=== PATIENT | female | born 1940 | race Caucasian/White ===

== ENCOUNTER → 2016-07-29 08:17 | Outpatient (CLI) | payer MEDICARE, BC ==
[2016-06-15 13:28] VITALS: BMI 21.8
[~2016-07-29 08:17] MED LIST: ACTOS15 MG PO; ALDACTONE50 MG PO; ARAVA10 MG PO; BAYER CHEWABLE81 MG PO; BREO ELLIPTA 11 EACH INH; BUMEX 1 MG TAB1 MG PO; DULERA 100 MCG8.8 GM INH; ESTRACE 0.5 MG0.5 MG PO; FOLIC ACID1 MG PO; FUROSEMIDE20 MG PO; HEMOCYTE PLUS C1 CAP PO; JANUMET XR 50-1 EACH PO; JANUVIA100 MG PO; K-TAB10 MEQ PO; LEUCOVORIN CALCI5 MG PO; LISINOPRIL10 MG PO; MAG-OX 400 MG400 MG PO; METHOTREXATE2.5 MG PO; MYSOLINE 50 MG50 MG PO; NEURONTIN 300300 MG PO; OMEPRAZOLE20 M1 PO; PLAVIX75 MG PO; PRAVACHOL80 MG PO; PREDNISONE1 MG PO; SYNTHROID25 MCG PO; VENTOLIN HFA18 GM INH; ZANAFLEX4 MG PO; ZEBETA5 MG PO; ZYLOPRIM100 MG PO; ZYRTEC10 MG PO
== END | disposition home or self-care (01) ==
LOC: D.RAD 08:15
DX: I50.9 Heart failure, unspecified (principal); J44.9 Chronic obstructive pulmonary disease, unspecified; J90 Pleural effusion, not elsewhere classified; J96.90 Respiratory failure, unspecified, unspecified whether with hypoxia or hypercapnia

== ENCOUNTER 2016-08-17 05:43 | Outpatient (CLI) | payer MEDICARE, BC ==
[~2016-08-17] VITALS: Ht 152.4 cm; Wt 50.0 kg
[~2016-08-17 05:43] MED LIST changes: -BAYER CHEWABLE81 MG PO; -BREO ELLIPTA 11 EACH INH; -ESTRACE 0.5 MG0.5 MG PO; -HEMOCYTE PLUS C1 CAP PO; -MAG-OX 400 MG400 MG PO; -PLAVIX75 MG PO; -ZYRTEC10 MG PO
[2016-08-17 06:48] LABS: BASOPHILS 0.4 % (0.0-2.0); EOSINOPHILS 5.2 % (0-7); HEMATOCRIT 28.7 % (36.0-48.0); HEMOGLOBIN 9.1 g/dL (12-16); IMMATURE GRANULOCYTES 1.4 % (0-5); LYMPHOCYTES 18.2 % (15-50); MCH 30.7 pg (26.0-34.0); MCHC 31.7 g/dL (31.0-37.0); MEAN PLATELET VOLUME 9.7 fL (7.4-10.4); MONOCYTES 11.3 % (2-11); NEUTROPHILS 63.5 % (40-80); PLATELET COUNT 279 10x3/uL (130-400); RBC 2.96 10x6/uL (4.00-5.40); RDW 16.5 % (11.5-14.5); WBC 9.2 10x3/uL (4.8-10.8)
[2016-08-17 07:00] LABS: APTT 34.4 SECONDS (22.8-39.4); INR 1.01 (0.85-1.17); PROTIME 13.1 SECONDS (11.6-15.0)
[2016-08-17 07:03] LABS: ANION GAP 13.4 mmol/L (8-16); CALCIUM 8.6 mg/dL (8.5-10.1); CARBON DIOXIDE 26.7 mmol/L (21.0-32.0); POTASSIUM - SERUM 4.1 mmol/L (3.5-5.1)
[2016-08-17 07:25] VITALS: BP 111/52; Ht 152.4 cm; Wt 50.0 kg
[2016-08-17] MEDS ORDERED: K-TAB10 MEQ PO (07:35)
--- NOTE | 2016-08-17 09:53 | NUR ---
AWAKE AND ALERT SITTING UP EATING NO DISTRESS NOTED , [facility] CAR WAS IN ROOM TO TALK WITH PT
--- NOTE | 2016-08-17 09:54 | NUR ---
VS TAKEN AND PLACE ON POST OP SHEET
--- NOTE | 2016-08-17 13:23 | NUR ---
PATIENT DRESSED, SITTING IN CHAIR IN ROOM, ALERT, NO COMPLAINTS. DC INSTRUCTIONS REVIEWED, PATIENT DISCHARGED HOME VIA WHEELCHAIR TO PRIVATE VEHICLE WITH SPOUSE
[2016-08-18 14:24] LABS: FUNGUS STAIN Final report (())
[2016-08-18 15:23] LABS: AFB SPECIMEN PROCESSING Not Indicated (())
[2016-09-15 09:17] LABS: FUNGUS MYCOLOGY CULTURE Final report (())
[2016-10-07 12:17] LABS: ACID FAST CULTURE Negative (()); ACID FAST SMEAR Negative (())
== END 2016-08-17 14:00 | disposition home or self-care (01) ==
LOC: D.OPS 05:43 → D.CT 08:00 → D.OPS 14:00 → D.CT 08-18 11:00
PROVIDERS: General Practice; Internal Medicine Pulmonary Disease
DX: J90 Pleural effusion, not elsewhere classified (principal); I50.9 Heart failure, unspecified; J45.909 Unspecified asthma, uncomplicated; J44.9 Chronic obstructive pulmonary disease, unspecified; J98.11 Atelectasis; R94.2 Abnormal results of pulmonary function studies; I27.2 Other secondary pulmonary hypertension; I25.10 Atherosclerotic heart disease of native coronary artery without angina pectoris; E78.5 Hyperlipidemia, unspecified; K21.9 Gastro-esophageal reflux disease without esophagitis; I07.1 Rheumatic tricuspid insufficiency; I10 Essential (primary) hypertension; E03.9 Hypothyroidism, unspecified; I34.0 Nonrheumatic mitral (valve) insufficiency; E11.9 Type 2 diabetes mellitus without complications

== ENCOUNTER → 2016-08-18 09:22 | Outpatient (CLI) | payer MEDICARE, BC ==
[2016-08-17 07:25] VITALS: BMI 21.5
[~2016-08-18 09:22] MED LIST changes: +BAYER CHEWABLE81 MG PO; +BREO ELLIPTA 11 EACH INH; +ESTRACE 0.5 MG0.5 MG PO; +HEMOCYTE PLUS C1 CAP PO; +MAG-OX 400 MG400 MG PO; +PLAVIX75 MG PO; +ZYRTEC10 MG PO
== END | disposition home or self-care (01) ==
LOC: D.RAD 09:22
DX: J93.9 Pneumothorax, unspecified (principal)

== ENCOUNTER → 2016-08-24 11:04 | Outpatient (CLI) | payer MEDICARE, BC ==
[2016-08-17 07:25] VITALS: BMI 21.5
== END | disposition home or self-care (01) ==
LOC: D.RAD 11:04
DX: J90 Pleural effusion, not elsewhere classified (principal); R06.00 Dyspnea, unspecified

== ENCOUNTER 2016-09-23 06:48 | Outpatient (CLI) | payer MEDICARE, BC ==
[~2016-09-23] VITALS: Ht 152.4 cm; Wt 50.0 kg
--- NOTE | ~2016-09-23 | HEMODYNAMI ---
PATIENT:LORRI GRACE MEDICAL RECORD: [id number] : 40 LOCATION:[facility] ADMISSION DATE: 09/23/16 Generatedon:09/23/20169:37 Patient name: LORRI GRACE Patient #: [id number] : 1940 Date of study: 09/23/2016 Page: Of Hemodynamic Procedure Report Patient Data Patient Demographics Procedure consent was obtained First Name: LORRI Gender: Female Last Name: LESLY : 1940 Middle Initial: CRISTINO Age: 76 year(s) Patient #: [id number] Race: SSN: [id number] Additional ID: [id number] Contact details Address: [facility] [address] State: [place] City: [place] Zip code: [address] Past Medical History Allergies Allergen Reaction Date Comments Reported Other allergy 09/23/2016 Metformin, PCN Admission Admission Data Admission Date: 09/23/2016 Admission Time: 6:48 Arrival Date: 09/23/2016 Arrival Time: 9:00 Admit Source: Other Insurance Payor: Medicare Height (in.): 60 BSA: 1.46 (m2) Height (cm.): 152.4 BMI: 22.07 (kg/m2) Weight (lbs.): 113 Weight (kg.): 51.26 Lab Results Lab Result Date: 09/23/2016 Lab Result Time: 0:00 Biochemistry Name Units Result Min Max BUN mg/dl 50 --(----)-* 7 18 Creatinine mg/dl 1 --(--*-)-- 0.6 1.3 CBC Name Units Result Min Max Hemoglobin g/dl 9.6 *-(----)-- 13.5 17.5 Procedure Procedure Types Cath Procedure Diagnostic Procedure LHC LHC w/Coronaries PCI Procedure PTCA Initial Miscellaneous Procedures Moderate Sedation up to 45 minutes Procedure Description Procedure Date Procedure Date: 09/23/2016 Procedure Start Time: 8:56 Procedure End Time: 9:34 Procedure Staff Name Function Cruz Rubin MD Performing Physician Lyubov Guidry RT Scrub Adrián Garner RN Nurse Pat Mireles RT Monitor Indication Angina Procedure Data Cath Procedure Fluoroscopy Diagnostic fluoroscopy Total fluoroscopy Time: time: 10.9 min 10.9 min Diagnostic fluoroscopy Total fluoroscopy dose: dose: 1291 mGy 1291 mGy Contrast Material Contrast Material Type Amount (ml) Isovue 370 113 Entry Location Entry Primary Successful Side Size Upsize Upsize Entry Closure Hughes ccessful Closure Location (Fr) 1 (Fr) 2 (Fr) Remarks Device Remarks Radial Right 6 Fr Mechanical artery Short Compression Estimated blood loss: 5 ml Diagnostic catheters Device Type Used For End Catheter Placement TerAdQuantic Optitorque 5Fr Multi-vessel Arco 4.5 catheter Angiography Procedure Complications No complications Procedure Medications Medication Administration Route Dosage Oxygen NC 2 l/min Heparin Flush Bag added to field 2 bags (1000units/500ml NS) 0.9% NaCl I.V. 100 ml/hr Radial Cocktail added to field 1 syringe (Verapomil 2mg/Nitro 400mcg/Heparin 1500units) Versed I.V. 1 mg Radial Cocktail I.A. 1 syringe (Verapomil 2mg/Nitro 400mcg/Heparin 1500units) Versed I.V. 1 mg Heparin Bolus I.V. 5000 units Plavix P.O. 600 mg Hemodynamics Rest BSA: 1.46 (m2) HGB: 9.6 (g/dl) O2 Consumption: Estimated: 130.17 (ml/min) O2 Con sumption indexed: Estimated:89.16 (ml/min/m) Heart Rate: 66 (bpm) Pressure Samples Time Site Value (mmHg) Purpose Heart Use Rate(bpm) 8:59 LV 114/15,25 Snapshot 66 9:00 AO 110/31(70) Pullback 73 9:00 LV 110/14,23 Pullback 73 Gradients Valve Time Site 1 Site 2 Mean SEP/DFP Peak To Heart Use (mmHg) (sec/min) Peak Rate (mmHg) (bpm) Aortic 9:00 LV AO 5 20 0 73 110/14,23 110/31(70) Calculations Valve P-P Mean Valve Index Valve Source Name Gradient Area Flow (cm2) Aortic 0 5 0 5 Snapshots Pre Cath Intra NCS Post Cath Vital Signs Time Heart Resp SPO2 etCO2 [id number] NIBP (mmHg) Rhythm Pain Sedation Rate (ipm) (%) (mmHg) (mmHg) Status Level (bpm) 8:35:25 75 18 0 0 114/76(98) NSR 0 (11) 10(A) , No pain 8:39:27 74 25 97 0 0 117/73(100) NSR 0 (11) 10(A) , No pain 8:43:31 74 26 97 0 0 121/71(99) NSR 0 (11) 10(A) , No pain 8:47:34 75 27 98 0 0 124/73(100) NSR 0 (11) 10(A) , No pain 8:51:40 74 26 98 0 0 117/71(94) NSR 0 (11) 10(A) , No pain 8:55:44 73 22 98 0 0 114/70(88) NSR 0 (11) 10(A) , No pain 8:59:50 58 23 98 0 0 109/59(76) NSR 0 (11) 9(A) , No pain 9:03:53 69 22 94 0 0 106/61(84) NSR 0 (11) 9(A) , No pain 9:07:55 68 22 95 0 0 105/61(88) NSR 0 (11) 9(A) , No pain 9:11:57 69 21 95 0 0 106/61(82) NSR 0 (11) 9(A) , No pain 9:15:59 73 21 96 0 0 107/62(92) NSR 0 (11) 9(A) , No pain 9:20:00 72 22 96 0 0 108/63(92) NSR 0 (11) 9(A) , No pain 9:24:04 69 20 96 0 0 111/62(92) NSR 0 (11) 9(A) , No pain 9:28:06 73 24 95 0 0 117/69(99) NSR 0 (11) 9(A) , No pain 9:32:13 72 23 95 0 0 117/61(93) NSR 0 (11) 9(A) , No pain 9:36:26 70 24 95 0 0 106/60(90) NSR 0 (11) 10(A) , No pain Medications Time Medication Route Dose Verified Delivered Reason Notes Effectiveness by by 8:36:57 Oxygen NC 2 l/min Adrián Sampson Per physician Pascual Garner RN RN 8:37:08 Heparin Flush added 2 bags Adrián Adrián used for Bag to Pascual Garner RN procedure (1000units/500ml field RN NS) 8:37:19 0.9% NaCl I.V. 100 Adirán Sampson Per physician ml/hr Pascual Garner RN RN 8:37:31 Radial Cocktail added 1 Adrián Adrián used for (Verapomil to syringe Pascual Garner RN procedure 2mg/Nitro field RN 400mcg/Heparin 1500units) 8:57:06 Versed I.V. 1 mg Adrián Simony for sedation Pascual Garner RN RN 8:58:38 Radial Cocktail I.A. 1 Adrián Cruz for (Verapomil syringe Pascual Rubin MD vasodilation 2mg/Nitro RN 400mcg/Heparin 1500units) 9:09:30 Versed I.V. 1 mg Adrián Sampson for sedation Pascual Garner RN RN 9:13:55 Heparin Bolus I.V. 5000 Adrián Adrián for units Pascual Garner RN anticoagulation RN 9:34:53 Plavix P.O. 600 mg Adrián Sampson for Pascual Garner RN antiplatelet RN therapy Procedure Log Time Note 8:15:40 Adrián Garner RN sent for patient. Start room use. 8:23:56 Informed consent obtained and on chart 8:25:47 Diagnostic Cath Status : Elective 8:27:29 Indication : Angina 8:27:52 Time tracking: Regular hours 8:27:58 Plan of Care:Hemodynamics will remain stable., Cardiac rhythm will remain stable., Comfort level will be maintained., Respiratory function will remain adequate., Patient/ family verbilizes understanding of procedure., Procedure tolerated without complication., Recovers from procedure without complications.. 8:28:04 Patient received from Pre/Post Procedure Room to [facility] 1 Alert and oriented. Tansferred to table in Supine position. 8:28:05 Warm blankets applied, and fili hugger turned on for patient comfort. 8:28:06 Correct patient and procedure confirmed by team. 8:28:07 ECG and BP/O2 sat monitors applied to patient. 8:34:08 Vital chart was started 8:34:20 Baseline sample Acquired. 8:34:24 Rhythm: sinus rhythm 8:34:26 Full Disclosure recording started 8:34:58 H&P Date Dictated: 09/15/2016 Within 30 days and on chart., H&P Addendum completed by physician on day of procedure. (MUST COMPLETE FOR ALL OUTPATIENTS). 8:35:02 Pre-procedure instructions explained to patient. 8:35:04 Family in waiting room. 8:35:07 Patient NPO since Midnight. 8:35:29 Patient allergic to Other allergyMetformin, PCN 8:35:33 Is the patient allergic to Iodine/contrast media? No. 8:35:52 Patient diabetic? Yes. 8:35:53 If diabetic: On Metformin? Yes 8:35:54 If on Metformin: Last Dose? 09/21/2016 8:36:07 Snore? Yes 8:36:11 Sleep apnea? Yes 8:36:30 Is patient on blood thinner?No 8:36:38 Airway obstruction? Yes COPD 8:36:53 Dentures? No ? 8:36:54 Dentures? Yes ? 8:36:57 Oxygen 2 l/min NC was given by Adrián Garner RN; Per physician; 8:36:59 Patient pain scale 0/10 ?. 8:37:07 IV patent on arrival in left forearm with 0.9% NaCl at [facility]. 8:37:08 Heparin Flush Bag (1000units/500ml NS) 2 bags added to field was given by Adrián Garner RN; used for procedure; 8:37:19 0.9% NaCl 100 ml/hr I.V. was given by Adrián Garner RN; Per physician; 8:37:31 Radial Cocktail (Verapomil 2mg/Nitro 400mcg/Heparin 1500units) 1 syringe added to field was given by Adrián Garner RN; used for procedure; 8:38:16 Lab Result : BUN 50 mg/dl 8:38:16 Lab Result : Creatinine 1 mg/dl 8:38:16 Lab Result : Hemoglobin 9.6 g/dl 8:38:31 Lab results completed and on chart. 8:38:37 Right Radial & Right Groin area was prepped with chlora-prep and draped in sterile fashion 8:38:45 Alarms reviewed by R. N. 8:38:46 Sharps counted by scrub and verified by R.N. 8:38:54 Use device set Radial Dx 8:38:56 Acist Syringe opened to sterile field. 8:38:56 Medline Cath Pack opened to sterile field. 8:38:57 Bag Decanter opened to sterile field. 8:38:57 Terumo 6Fr Slender Glidesheath opened to sterile field. 8:38:58 St Jose 260cm J .035 wire opened to sterile field. 8:38:58 Acist Hand Control opened to sterile field. 8:38:58 Acist Manifold opened to sterile field. 8:38:59 Tegaderm 4 x 4 opened to sterile field. 8:42:23 Physician arrived 8:42:23 --------ALL STOP TIME OUT------ 8:42:24 Final Timeout: patient, procedure, and site verified with staff and physician. All members of the team are in agreement. 8:42:26 Right Radial & Right Groin site verified by team. 8:42:29 Physical assessment completed. ASA score P 2 - A patient with mild systemic disease as per Cruz Rubin MD. 8:42:33 Sedation plan: IV Moderate Sedation Versed, Fentanyl 8:48:53 Admit Source: Other 8:48:55 Arrival Date: 09/23/2016 9:00:00 AM 8:49:05 Insurance Payor : Medicare 8:49:15 Patient Height : 60 inches 8:49:19 Patient Weight : 113 lbs 8:49:36 Zero performed for pressure channel P1 8:55:47 Procedure started. 8:56:08 Local anesthetic to right radial artery with Lidocaine 2% by Cruz Rubin MD.INITIAL ACCESS ONLY 8:57:06 Versed 1 mg I.V. was given by Adrián Garner RN; for sedation; 8:58:08 A 6 Fr Short sheath was inserted into the Right Radial artery 8:58:35 A Terumo Optitorque 5Fr Arco 4.5 catheter was advanced over the wire and used for Multi-vessel Angiography. 8:58:38 Radial Cocktail (Verapomil 2mg/Nitro 400mcg/Heparin 1500units) 1 syringe I.A. was given by Cruz Rubin MD; for vasodilation; 8:59:44 LV hemodynamics recorded. 8:59:45 LV gram done using HOPE 8:59:49 Injector settings: Ml/sec: 5, Volume: 15, 9:00:22 EF : 40 % 9:00:56 LCA angiography performed. 9:01:00 Injector settings: Ml/sec: 3, Volume: 6, 9:08:36 RCA angiography performed. 9:08:39 Injector settings: Ml/sec: 3, Volume: 6, 9:08:42 Catheter removed. 9:08:43 Proceeding to intervention. 9:09:30 Versed 1 mg I.V. was given by Adrián Garner RN; for sedation; 9:09:41 Medtronic Launcher 6Fr AR 1.0 SH guide catheter opened to sterile field. 9:09:42 High Pressure Extension Tubing (Rubin) opened to sterile field. 9:09:43 Eventcheq BMW [place] 2 J-tip 300cm 0.014 guide wir opened to sterile field. 9:09:44 LesConcierges BasixCompak Inflation Kit opened to sterile field. 9:10:09 6 Fr ar 1 sh guide catheter was inserted over the wire 9:13:48 bmw wire advanced. 9:13:50 Wire advanced across lesion. 9:13:55 Heparin Bolus 5000 units I.V. was given by Adrián Garner RN; for anticoagulation; 9:16:26 Inflation number: 1 A Rosalie Sci Hardin 2.0 X 20 balloon was prepped and advanced across the Dist RCA, then inflated to 10 ADAIR for 0:10 (min:sec). 9:16:49 Inflation number: 1 The Rosalie Sci Hardin 2.0 X 20 balloon was reinflated across the Mid RCA, to 12 ADAIR for 0:10 (min:sec). 9:17:22 Inflation number: 2 The Rosalie Sci Hardin 2.0 X 20 balloon was reinflated across the Mid RCA, to 14 ADAIR for 0:10 (min:sec). 9:18:07 Inflation number: 1 The Rosalie Sci Hardin 2.0 X 20 balloon was reinflated across the Prox RCA, to 16 ADAIR for 0:10 (min:sec). 9:18:19 Baseline sample Acquired. 9:19:58 Inflation number: 2 The Rosalie Sci Hardin 2.0 X 20 balloon was reinflated across the Prox RCA, to 16 ADAIR for 0:10 (min:sec). 9:20:35 Balloon removed over the wire. 9:26:48 Inflation number: 3 A NC Euphora 2.5 x 15 balloon was prepped and advanced across the Prox RCA, then inflated to 14 ADAIR for 0:10 (min:sec). 9:27:37 Inflation number: 4 The NC Euphora 2.5 x 15 balloon was reinflated across the Prox RCA, to 14 ADAIR for 0:10 (min:sec). 9:28:14 Inflation number: 5 The NC Euphora 2.5 x 15 balloon was reinflated across the Prox RCA, to 16 ADAIR for 0:10 (min:sec). 9:30:11 Inflation number: 6 The NC Euphora 2.5 x 15 balloon was reinflated across the Prox RCA, to 20 ADAIR for 0:10 (min:sec). 9:32:26 Wire removed. 9:32:51 Guide catheter removed. 9:32:58 Terumo TR Band Standard opened to sterile field. 9:33:08 Sheath removed intact; hemostasis achieved with Mechanical Compression to the Right Radial artery. 9:33:09 Procedure ended.(Physican Out) 9:33:22 Fluoroscopy time 10.90 minutes. 9:33:32 Fluoroscopy dose: 1291 mGy 9:33:32 Flurop Dose total: 1291 9:33:41 Contrast amount:Isovue 370 113ml. 9:33:44 Sharps counted by scrub and verified by R.N. 9:33:48 TR band inflated with 12cc of air. 9:33:50 Insertion/operative site no bleeding no hematoma. 9:33:54 Post right radial artery:stable 9:33:56 Post Procedure Pulses reassessed and unchanged 9:33:59 Post procedure rhythm: unchanged. 9:34:02 Estimated blood loss: 5 ml 9:34:04 Post procedure instruction explained to patient.Patient verbalizes understanding. 9:34:04 Patient needs reinforcement of post procedure teaching. 9:34:13 Procedure type changed to Cath procedure, Diagnostic procedure, LHC, LHC w/Coronaries, PCI procedure, PTCA Initial, Miscellaneous Procedures, Moderate Sedation up to 45 minutes 9:34:14 Procedure and supply charges have been captured, reviewed, submitted and are correct. 9:34:19 Procedure Complication : No complications 9:34:25 Vital chart was stopped 9:34:26 See physician's report for complete and final results. 9:34:29 Report given to Pre/Post Procedure Room. 9:34:31 Patient transfered to Pre/Post Procedure Room with Stretcher. 9:34:33 Procedure ended. 9:34:33 Full Disclosure recording stopped 9:34:40 End room use (Document Last) 9:34:53 Plavix 600 mg P.O. was given by Adrián Garner RN; for antiplatelet therapy; Intervention Summary Intervention Notes Time ActionType Lesion and Equipment Action# Pressure Duration Attributes Used 9:16:26 Inflate Dist RCA Rosalie 1 10 00:10 balloon Sci Hardin 2.0 X 20 balloon 9:16:49 Reinflate Mid RCA Rosalie 1 12 00:10 balloon Sci Hardin 2.0 X 20 balloon 9:17:22 Reinflate Mid RCA Rosalie 2 14 00:10 balloon Sci Hardin 2.0 X 20 balloon 9:18:07 Reinflate Prox RCA Rosalie 1 16 00:10 balloon Sci Hardin 2.0 X 20 balloon 9:19:58 Reinflate Prox RCA Rosalie 2 16 00:10 balloon Sci Hardin 2.0 X 20 balloon 9:26:48 Inflate Prox RCA NC 3 14 00:10 balloon Euphora 2.5 x 15 balloon 9:27:37 Reinflate Prox RCA NC 4 14 00:10 balloon Euphora 2.5 x 15 balloon 9:28:14 Reinflate Prox RCA NC 5 16 00:10 balloon Euphora 2.5 x 15 balloon 9:30:11 Reinflate Prox RCA NC 6 20 00:10 balloon Euphora 2.5 x 15 balloon Device Usage Item Name Manufacture Quantity Catalog Number Hospital Part Current Mini mal Lot# / Charge Number Stock Stock Serial# Code Acist Acist 1 00674 [id number] 195448 540507 20 Syringe Medical Systems Inc Medline Cardinal 1 [id number] 472165 16425 152122 5 Cath Pack Health Bag Microtek 1 2001S 606213 18173 849529 5 DecEmployma Medical Inc. Terumo 6Fr Terumo 1 [id number] 555662 427736 171100 [address] Jose 1 191596 176753 757844 712536 30 260cm J .035 wire Acist Hand Acist 1 25633 184667 257234 443173 5 Control Medical Systems Inc Acist Acist 1 49699 467491 928173 120091 5 Manifold Medical Systems Inc Tegaderm 4 3M 1 1626W 202083 585284 923468 5 x 4 Terumo Terumo 1 40-7762 871230 803779 337620 5 Optitorque 5Fr Arco 4.5 catheter Medtronic Medtronic 1 [id number] 510098 39106 642266 1 Launcher 6Fr AR 1.0 SH guide catheter High Merit 1 [id number] 868806 15653 248678 10 Pressure Medical Extension Tubing (Rubin) Burrell BMW Burrell 1 [id number] 410826 231989 255549 5 [place] 2 Vascular J-tip 300cm 0.014 guide wir Merit Merit 1 [id number] 211296 107820 957116 15 BasixCompak Medical Inflation Kit Rosalie Sci Rosalie 1 [id number] 622482 931023 687236 1 [id number] DNART LIMITADA 2.0 X 20 balloon NC Euphora Medtronic 1 [id number] 083680 537805 805493 1 [id number] 2.5 x 15 balloon Terumo TR Terumo 1 [id number] 449521 609899 639635 40 Band Standard Signature Audit Reeds Stage Time Signature Unsigned Intra-Procedure 09/23/2016 Pat Mireles 9:36:58 AM RT(R) Signatures Monitor : Pat Mireles RT Signature : Date : Time : [facility] [address] [place] [address]
[~2016-09-23 06:48] MED LIST changes: -BAYER CHEWABLE81 MG PO; -BREO ELLIPTA 11 EACH INH; -ESTRACE 0.5 MG0.5 MG PO; -HEMOCYTE PLUS C1 CAP PO; -MAG-OX 400 MG400 MG PO; -PLAVIX75 MG PO; -ZYRTEC10 MG PO
[2016-09-23 07:33] LABS: BASOPHILS 0.2 % (0.0-2.0); HEMATOCRIT 29.4 % (36.0-48.0); HEMOGLOBIN 9.6 g/dL (12-16); LYMPHOCYTES 14.1 % (15-50); MCH 32.1 pg (26.0-34.0); MCHC 32.7 g/dL (31.0-37.0); MCV 98.3 fL (80.0-100.0); MEAN PLATELET VOLUME 9.9 fL (7.4-10.4); MONOCYTES 8.5 % (2-11); NEUTROPHILS 74.2 % (40-80); PLATELET COUNT 324 10x3/uL (130-400); RBC 2.99 10x6/uL (4.00-5.40); RDW 18.1 % (11.5-14.5); WBC 8.8 10x3/uL (4.8-10.8)
[2016-09-23] MEDS ORDERED: FUROSEMIDE20 MG PO (07:34)
[2016-09-23] MEDS ORDERED: MAG-OX 400 MG400 MG PO (07:35)
[2016-09-23] MEDS ORDERED: ESTRACE 0.5 MG0.5 MG PO (07:36)
[2016-09-23] MEDS ORDERED: ZYRTEC10 MG PO (07:36)
[2016-09-23] MEDS ORDERED: BAYER CHEWABLE81 MG PO (07:37)
[2016-09-23] MEDS ORDERED: HEMOCYTE PLUS C1 CAP PO (07:37)
[2016-09-23 07:40] LABS: CALCIUM 8.7 mg/dL (8.5-10.1); CARBON DIOXIDE 26.2 mmol/L (21.0-32.0); POTASSIUM - SERUM 4.2 mmol/L (3.5-5.1)
[2016-09-23 07:46] VITALS: BP 121/58; Ht 152.4 cm; Wt 50.0 kg
[2016-09-23] MEDS ORDERED: PLAVIX75 MG PO (09:58)
--- NOTE | 2016-09-23 10:42 | NUR ---
1005-TR BAND INTACT, NO BLEEDING 1030-TR BAND TO RIGHT WRIST REMAINS INTACT WITHOUT HEMATOMA OR BLEEDING, DENIES CHEST PAIN OR NEEDS AT THIS TIME
--- NOTE | 2016-09-23 14:33 | NUR ---
1400-IV D'C WITH CATH TIP INTACT, TR BAND OFF-TEGADERM AND 2X2 IN PLACE, NO BLEEDING AT SITE, WRITTEN AND VERBAL INSTRUCTIONS GIVEN TO PT AND , TO REST ROOM -VOID WITHOUT DIFFICULTY. D'C HOME, DENIES FURTHUR NEEDS
--- NOTE | 2016-10-05 08:17 | OP ---
PATIENT NAME: LORRI GRACE MEDICAL RECORD: [id number] :40 LOCATION:D.CAT ADMISSION DATE: SURGEON: EFREM STATON M.D. DATE OF OPERATION: 09/23/2016 REFERRING PHYSICIAN: Alfred Shipley DO. PROCEDURES PERFORMED: 1. Selective coronary angiography. 2. Left heart catheterization with ventriculogram. 3. PTCA of the right coronary artery. INDICATION: A 76-year-old woman with history of coronary artery disease who presents with accelerating angina. EQUIPMENT USED: Diagnostic 5-Chadian Pacheco catheter. INTERVENTION: A 6-Chadian AR1 guide, BMW guide wire, 2.0 x 20 mm [place] balloon, 2.5 x 15 Euphora balloon. TECHNIQUE: A 6-Chadian sheath was inserted in retrograde fashion in the right radial artery. Next, selective coronary angiography was performed in standard 5-Chadian Pacheco catheter. Left heart catheterization performed using a Pacheco catheter as well. CORONARY ANATOMY: 1. Left main: Left main trunk is moderate in caliber. It gives rise to the LAD, ramus, and circumflex. It has no obstruction. 2. LAD: This is a moderate caliber vessel extending to the apex. The proximal vessel has a 70% stenosis at the level of the ostium. Mid vessel is diffusely diseased. 3. Ramus: This vessel is moderate in caliber. It has a long 78% stenosis arising from the proximal segment. 4. Circumflex: This vessel is small in caliber. It appears to be subtotaled in its distal aspect with less than 2-mm vessel at this point. 5. Right coronary artery: This vessel is moderate in caliber and dominant. The proximal, mid and distal vessels have been stented. There is a long diffuse 99% in-stent restenosis seen in the proximal vessel. The mid vessel has a long 70% in-stent restenosis. 6. Left ventricle: Left ventricle is upper limits of normal size. There is global hypokinesis noted. Estimated ejection fraction is in the order of 35%. DESCRIPTION OF INTERVENTION: A 100 units per kilogram of heparin was infused. A 6-Chadian AR1 guide was advanced and engaged in the right coronary artery. Next, a BMW guide wire was placed in the distal vessel. A 2.0 x 20 mm [place] balloon was used to predilate the mid and proximal right coronary artery at 16 atmospheres. The mid segment looked much improved after dilation. However, the proximal vessel did not change much. At this point, a 2.5 x 15 mm noncompliant balloon was placed. A long inflation performed at 20 atmospheres. Injections revealed about 20% residual stenosis within the stent. There is marked improvement in distal flow. At this point, the wire and guide were removed. IMPRESSION: Successful percutaneous transluminal coronary angioplasty of the right coronary artery. OPERATIVE REPORT [id number] LORRI GRACE PLAN: I will likely stage the LAD and ramus lesions and perform this in 1 more week. TRANSINT:[id number] Voice Confirmation ID: [id number] DOCUMENT ID: [id number] EFREM STATNO M.D. at 0817 CC: [id number] DICTATION DATE: 09/23/16 0946 PRESCHOOL ASSOCIATE TEACHER: 09/23/16 1101 DEP CLI 09/23/16 [id number] [place] [address]
== END 2016-09-23 14:15 | disposition home or self-care (01) ==
LOC: D.CATH 06:48
PROVIDERS: Internal Medicine Cardiovascular Disease
DX: I25.110 Atherosclerotic heart disease of native coronary artery with unstable angina pectoris (principal); T82.855A Stenosis of coronary artery stent, initial encounter

== ENCOUNTER 2016-10-06 10:22 | Outpatient (CLI) | payer MEDICARE, BC ==
[~2016-10-06] VITALS: Ht 152.4 cm; Wt 48.2 kg
--- NOTE | ~2016-10-06 | HEMODYNAMI ---
PATIENT:LORRI GRACE MEDICAL RECORD: [id number] : 40 LOCATION:[facility] ADMISSION DATE: 10/06/16 Generatedon:10/06/201614:31 Patient name: LORRI GRACE Patient #: [id number] : 1940 Date of study: 10/06/2016 Page: Of Hemodynamic Procedure Report Patient Data Patient Demographics Procedure consent was obtained First Name: LORRI Gender: Female Last Name: LESLY : 1940 [facility] Initial: CRISTINO Age: 76 year(s) Patient #: [id number] Race: SSN: [id number] Additional ID: [id number] Contact details Address: [facility] [address] State: [place] City: [place] Zip code: [address] Past Medical History Allergies Allergen Reaction Date Comments Reported Other allergy 09/23/2016 Metformin, PCN Other allergy 10/06/2016 Metformin/PCN Admission Admission Data Admission Date: 10/06/2016 Admission Time: 10:22 Arrival Date: 10/06/2016 Arrival Time: 0:00 Admit Source: Other Height (in.): 61 BSA: 1.48 (m2) Height (cm.): 154.94 BMI: 21.35 (kg/m2) Weight (lbs.): 113 Weight (kg.): 51.26 Lab Results Lab Result Date: 10/06/2016 Lab Result Time: 0:00 Biochemistry Name Units Result Min Max BUN mg/dl 22 --(----)-* 7 18 Creatinine mg/dl 0.9 --(-*--)-- 0.6 1.3 CBC Name Units Result Min Max Hemoglobin g/dl 9.5 *-(----)-- 13.5 17.5 Procedure Procedure Types Cath Procedure PCI Procedure Coronary Stent Initial Miscellaneous Procedures Moderate Sedation up to 15 minutes Procedure Description Procedure Date Procedure Date: 10/06/2016 Procedure Start Time: 14:09 Procedure End Time: 14:27 Procedure Staff Name Function Cruz Power MD Performing Physician Pat Mireles RT Scrub Brian Steiner RN Nurse Pat Mireles RT Installer Soft Top Lyubov Guidry RT Monitor Procedure Data Cath Procedure Fluoroscopy Diagnostic fluoroscopy Total fluoroscopy Time: 6.1 time: 6.1 min min Diagnostic fluoroscopy Total fluoroscopy dose: 625 dose: 625 mGy mGy Contrast Material Contrast Material Type Amount (ml) Isovue 300 75 Entry Location Entry Primary Successful Side Size Upsize Upsize Entry Closure Succes sful Closure Location (Fr) 1 (Fr) 2 (Fr) Remarks Device Remarks Femoral Right 6 Fr Exoseal artery Short Estimated blood loss: 10 ml Procedure Complications No complications Procedure Medications Medication Administration Route Dosage Oxygen NC 2 l/min Lidocaine 2% added to field 20 Heparin Flush Bag added to field 2 bags (1000units/500ml NS) 0.9% NaCl I.V. 100 ml/hr Versed I.V. 1 mg Fentanyl I.V. 50 mcg Heparin Bolus I.V. 5000 units Versed I.V. 1 mg Fentanyl I.V. 50 mcg Plavix P.O. 75 mg Hemodynamics Rest BSA: 1.48 (m2) HGB: 9.5 (g/dl) O2 Consumption: Estimated: 152.53 (ml/min) O2 Con sumption indexed: Estimated:103.06 (ml/min/m) Heart Rate: 103 (bpm) Snapshots Pre Cath Intra NCS Post Cath Vital Signs Time Heart Resp SPO2 NIBP (mmHg) Rhythm Pain Sedation Rate (ipm) (%) Status Level (bpm) 13:52:54 97 27 95 132/82(111) NSR 0 (11) 10(A) , No pain 13:56:56 94 29 95 136/84(107) NSR 0 (11) 10(A) , No pain 14:01:00 95 22 98 140/82(112) NSR 0 (11) 10(A) , No pain 14:05:05 92 23 98 131/81(111) NSR 0 (11) 10(A) , No pain 14:09:09 88 19 97 133/76(100) NSR 0 (11) 10(A) , No pain 14:13:13 88 20 96 124/77(104) NSR 0 (11) 9(A) , No pain 14:17:17 86 18 96 123/73(103) NSR 0 (11) 9(A) , No pain 14:21:20 89 14 95 126/67(96) NSR 0 (11) 9(A) , No pain 14:25:26 84 18 97 124/64(102) NSR 0 (11) 9(A) , No pain 14:29:58 83 16 98 122/66(98) NSR 0 (11) 10(A) , No pain Medications Time Medication Route Dose Verified Delivered Reason Notes Effectiveness by by 13:55:37 Oxygen NC 2 Cruz Buffie used for l/min Scottie Steiner RN procedure 13:55:44 Lidocaine 2% added 20ml Cruz Cruz for local to vial Scottie Power MD anesthetic field 13:55:50 Heparin Flush added 2 Cruz Cruz used for Bag to bags Scottie Power MD procedure (1000units/500ml field NS) 13:56:07 0.9% NaCl I.V. 100 Cruz Buffie Per physician ml/hr Scottie Steiner RN 14:06:47 Versed I.V. 1 mg Cruz Buffie for sedation Scottie Steiner RN 14:06:54 Fentanyl I.V. 50 Cruz Buffie for sedation mcg Scottie Steiner RN 14:14:31 Heparin Bolus I.V. 5000 Cruz Buffie for verifi ed units Scottie Steiner RN anticoagulation with dr power 14:21:11 Versed I.V. 1 mg Cruz Buffie for sedation Scottie Steiner RN 14:21:15 Fentanyl I.V. 50 Cruz Buffie for sedation mcg Scottie Steiner RN 14:27:58 Plavix P.O. 75 mg Cruz Buffie for Scottie Steiner RN antiplatelet therapy Procedure Log Time Note 13:41:16 Patient Height : 154.94 cm 13:41:25 Patient Weight : 51.26 kg 13:41:26 Arrival Date: 10/06/2016 12:00:00 AM 13:41:31 Admit Source: Other 13:41:50 Diagnostic Cath Status : Elective 13:42:17 Pat Mireles RT(R) sent for patient. Start room use. 13:42:18 Time tracking: Regular hours 13:42:24 Plan of Care:Hemodynamics will remain stable., Cardiac rhythm will remain stable., Comfort level will be maintained., Respiratory function will remain adequate., Patient/ family verbilizes understanding of procedure., Procedure tolerated without complication., Recovers from procedure without complications.. 13:51:44 Patient received from Outpatients to [facility] 2 Alert and oriented. Tansferred to table in Supine position. 13:51:45 Warm blankets applied, and fili hugger turned on for patient comfort. 13:51:45 Correct patient and procedure confirmed by team. 13:51:47 Signed procedure consent form obtained from patient. 13:51:48 ECG and BP/O2 sat monitors applied to patient. 13:51:49 Baseline sample Acquired. 13:51:49 Vital chart was started 13:51:54 Rhythm: sinus rhythm 13:51:55 Full Disclosure recording started 13:52:04 H&P Date Dictated: 09/15/2016 Within 30 days and on chart., H&P Addendum completed by physician on day of procedure. (MUST COMPLETE FOR ALL OUTPATIENTS). 13:52:07 Pre-procedure instructions explained to patient. 13:52:09 Family in waiting room. 13:52:12 Patient NPO since Midnight. 13:52:35 Patient allergic to Other allergyMetformin/PCN 13:52:38 Is the patient allergic to Iodine/contrast media? No. 13:53:19 Is patient on blood thinner?Yes 13:53:23 ACC The patient was administered the following blood thiners within the last 24 hours: ACCPlavix 13:53:25 Patient diabetic? Yes. 13:53:27 If diabetic: On Metformin? No 13:53:36 Snore? No 13:53:39 Sleep apnea? No 13:53:46 Airway obstruction? Yes COPD 13:53:53 Dentures? No ? 13:53:57 Patient pain scale 0/10 ?. 13:54:03 IV patent on arrival in right hand with 0.9% NaCl at [facility]. 13:55:37 Oxygen 2 l/min NC was administered by Brian Steiner RN; used for procedure; 13:55:44 Lidocaine 2% 20ml vial added to field was administered by Cruz Power MD; for local anesthetic; 13:55:50 Heparin Flush Bag (1000units/500ml NS) 2 bags added to field was administered by Cruz Power MD; used for procedure; 13:56:07 0.9% NaCl 100 ml/hr I.V. was administered by Brian Steiner RN; Per physician; 13:59:00 Lab Result : BUN 22 mg/dl 13:59:00 Lab Result : Creatinine 0.9 mg/dl 13:59:00 Lab Result : Hemoglobin 9.5 g/dl 13:59:12 Lab results completed and on chart. 13:59:16 Right groin area was prepped with chlora-prep and draped in sterile fashion 13:59:19 Alarms reviewed by R. N. 13:59:20 Sharps counted by scrub and verified by R.N. 13:59:21 Physician paged 13:59:33 Use device set Femoral PCI 14:06:03 Zero performed for pressure channel P1 14:06:13 Physician arrived 14:06:14 --------ALL STOP TIME OUT------ 14:06:15 Final Timeout: patient, procedure, and site verified with staff and physician. All members of the team are in agreement. 14:06:17 Right groin site verified by team. 14:06:20 Physical assessment completed. ASA score P 3 - A patient with severe systemic disease as per Cruz Power MD. 14:06:24 Sedation plan: IV Moderate Sedation Versed, Fentanyl 14:06:47 Versed 1 mg I.V. was administered by Brian Steiner RN; for sedation; 14:06:54 Fentanyl 50 mcg I.V. was administered by Brian Steiner RN; for sedation; 14:09:51 Procedure started. 14:09:56 Local anesthetic to right femoral artery with Lidocaine 2% by Cruz Power MD.INITIAL ACCESS ONLY 14:10:33 Acist Syringe opened to sterile field. 14:10:33 Acist Hand Control opened to sterile field. 14:10:34 Bag Decanter opened to sterile field. 14:10:34 Medline Cath Pack opened to sterile field. 14:10:35 Terumo 6Fr Keene Sheath opened to sterile field. 14:10:35 St Jose 260cm J .035 wire opened to sterile field. 14:10:36 Merit BasixCompak Inflation Kit opened to sterile field. 14:10:37 Acist Manifold opened to sterile field. 14:10:37 Tegaderm 4 x 4 opened to sterile field. 14:10:38 Medtronic Launcher 6Fr JL 3.5 guide catheter opened to sterile field. 14:10:48 A 6 Fr Short sheath was inserted into the Right Femoral artery 14:12:00 6 Fr JL3.5 guide catheter was inserted over the wire 14:14:31 Heparin Bolus 5000 units I.V. was administered by Brian Steiner RN; for anticoagulation; verified with dr power 14:17:08 Burrell BMW Mascot 2 J-tip 300cm 0.014 guide wir opened to sterile field. 14:17:24 BMW wire advanced. 14:18:16 Inflation number: 1 A [place] Sci Motley 2.0 X 20 balloon was prepped and advanced across the Ramus, then inflated to 11 ADAIR for 0:20 (min:sec). 14:18:44 Inflation number: 2 The [place] Sci Motley 2.0 X 20 balloon was reinflated across the Ramus, to 12 ADAIR for 0:14 (min:sec). 14:19:08 Balloon removed over the wire. 14:20:22 ACC PCI Site: Ramus has 90% stenosis. 14:21:11 Versed 1 mg I.V. was administered by Brian Steiner RN; for sedation; 14:21:15 Fentanyl 50 mcg I.V. was administered by Brian Steiner RN; for sedation; 14:25:23 Inflation Number: 3 A Medtronic Integrity 2.25 X 26 stent was prepped and advanced across the Ramus. The stent was deployed at 12 ADAIR for 0:45 (min:sec). 14:25:37 Stent catheter was removed intact over wire. 14:25:39 Wire removed. 14:25:40 Guide catheter removed. 14:25:52 Sheath removed intact; hemostasis achieved with Exoseal to the Right Femoral artery. 14:26:10 Cordis 6Fr Exoseal opened to sterile field. 14:26:14 Procedure ended.(Physican Out) :: Fluoroscopy time 06.10 minutes. :: Fluoroscopy dose: 625 mGy 14:: Flurop Dose total: 625 14:26:35 Contrast amount:Isovue 300 75ml. 14:26:36 Sharps counted by scrub and verified by R.N. 14:26:41 Insertion/operative site no bleeding no hematoma. 14:26:49 Post Procedure Pulses reassessed and unchanged 14:26:52 Post-procedure physical assessment completed. ASA score P 3 - A patient with severe systemic disease as per Cruz Power MD. 14:26:55 Post procedure rhythm: unchanged. 14:26:58 Estimated blood loss: 10 ml 14:27:00 Post procedure instruction explained to patient.Patient verbalizes understanding. 14:27:13 Procedure and supply charges have been captured, reviewed, submitted and are correct. 14:27:36 Procedure Complication : No complications 14:27:40 Vital chart was stopped 14:27:40 See physician's report for complete and final results. 14:27:48 Report given to Pre/Post Procedure Room. 14:27:51 Patient transfered to Pre/Post Procedure Room with Stretcher. 14:27:58 Plavix 75 mg P.O. was administered by Brian Steiner RN; for antiplatelet therapy; 14:27:59 Procedure ended. 14:27:59 Full Disclosure recording stopped 14:28:02 End room use (Document Last) Intervention Summary Intervention Notes Time ActionType Lesion and Equipment Action# Pressure Duration Attributes Used 14:18:16 Inflate Ramus [place] 1 11 00:20 balloon Sci Motley 2.0 X 20 balloon 14:18:44 Reinflate Ramus [place] 2 12 00:14 balloon Sci Motley 2.0 X 20 balloon 14:25:23 Place stent Ramus Medtronic 3 12 00:45 Integrity 2.25 X 26 stent Device Usage Item Name Manufacture Quantity Catalog Number Hospital Part Current Mini mal Lot# / Charge Number Stock Stock Serial# Code Acist Acist 1 [id number] 152391 556696 516009 20 Syringe Medical Systems Inc Acist Hand Acist 1 64873 093881 185629 591746 5 Control Medical Systems Inc Bag Microtek 1 2001S 507756 96777 131810 5 GoRest Software Inc. Medline Cardinal 1 [id number] 504707 66729 403936 5 Odyssey Airlineso 6Fr Terumo 1 [id number] 815397 779991 153791 [address] Jose 1 044177 392378 077740 736497 30 260cm J .035 wire Merit Merit 1 [id number] 222898 543005 352366 15 Paragon 28 Medical Inflation Kit Acist Acist 1 80498 344077 692982 951815 5 Sano Systems Inc Tegaderm 4 3M 1 1626W 851986 173220 770046 5 x 4 Medtronic Medtronic 1 [id number] 592005 15044 262530 1 Launcher 6Fr JL 3.5 guide catheter Burrell BMW Burrell 1 [id number] 828179 744896 382915 5 Mascot 2 Vascular J-tip 300cm 0.014 guide wir [place] Sci [place] 1 [id number] 921532 805497 914979 1 [id number] Anyadir Education 2.0 X 20 balloon Medtronic Medtronic 1 [id number] 259918 980094 286364 0 [id number] Integrity 2.25 X 26 stent Cordis 6Fr Cardinal 1 [id number] 815928 310187 939622 10 [facility] Signature Audit [place] Stage Time Signature Unsigned Intra-Procedure 10/06/2016 Lyubov Guidry 2:31:23 PM RT(R) Signatures Monitor : Lyubov Guidry Signature : RT Date : Time : [place] [id number] [address]
[~2016-10-06 10:22] MED LIST changes: +BAYER CHEWABLE81 MG PO; +ESTRACE 0.5 MG0.5 MG PO; +HEMOCYTE PLUS C1 CAP PO; +MAG-OX 400 MG400 MG PO; +PLAVIX75 MG PO; +ZYRTEC10 MG PO
[2016-10-06 12:42] LABS: BASOPHILS 0.2 % (0.0-2.0); EOSINOPHILS 1.5 % (0-7); HEMATOCRIT 29.9 % (36.0-48.0); HEMOGLOBIN 9.5 g/dL (12-16); IMMATURE GRANULOCYTES 1.6 % (0-5); LYMPHOCYTES 13.8 % (15-50); MCH 32.6 pg (26.0-34.0); MCHC 31.8 g/dL (31.0-37.0); MCV 102.7 fL (80.0-100.0); MEAN PLATELET VOLUME 9.6 fL (7.4-10.4); MONOCYTES 8.3 % (2-11); NEUTROPHILS 74.6 % (40-80); PLATELET COUNT 278 10x3/uL (130-400); RBC 2.91 10x6/uL (4.00-5.40); RDW 19.3 % (11.5-14.5); WBC 8.8 10x3/uL (4.8-10.8)
[2016-10-06] MEDS ORDERED: BREO ELLIPTA 11 EACH INH (12:46)
[2016-10-06 12:49] VITALS: BP 124/63; Ht 152.4 cm; Wt 48.2 kg
[2016-10-06 12:50] LABS: CALCIUM 8.5 mg/dL (8.5-10.1); CARBON DIOXIDE 24.7 mmol/L (21.0-32.0); CREATININE - SERUM 0.8 mg/dL (0.6-1.3); POTASSIUM - SERUM 3.7 mmol/L (3.5-5.1)
--- NOTE | 2016-10-06 15:10 | NUR ---
1450 RECEIVED PT FROM NURSERY HAND. PT IS DROSWY, DENIES ANY C/O PAIN OR NAUSEA. RR EVEN AND UNLABORED, ON O2 AT 2 LPM VIA NC. 6 FR EXOSEAL CDI TO RIGHT GROIN, NO BLEEDING OR HEMATOMA NOTED. PEDAL PULSES PALPABLE. INSTRUCTED PT TO KEEP RIGHT LEG STRAIGHT AND HEAD TO PILLOW AND PT VEBALIZES UNDERSTANDING. CALL LIGHT IN REACH, AT BEDSIDE.
--- NOTE | 2016-10-06 15:12 | NUR ---
1505 PT DENIES ANY C/O. DRESSING TO RIGHT GROIN IS CDI, NO BLEEDING OR HEMATOMA NOTED, SINUS RHYTHM RATE 87.
--- NOTE | 2016-10-06 15:35 | NUR ---
RESTING IN BED WITH HEAD FLAT ON PILLOW. VITAL SIGSN STABLE. RIGHT GROIN CDI, NO BLEEDING OR HEMATOMA NOTED. DENIES ANY CHEST PAIN OR NAUSEA. AT BEDSIDE, CALL LIGHT WITHIN REACH.
--- NOTE | 2016-10-06 15:50 | NUR ---
IN BED RESTING QUIETLY. NO C/O AT THIS TIME. VITAL SIGNS STABLE. RIGHT GROIN CDI. NO BLEEDING OR HEMATOMA NOTED. WILL CONTINUE TO MONITOR.
--- NOTE | 2016-10-06 16:04 | NUR ---
1605 IV HAS BEEN DC'D WITH CATH INTACT. PT IS DRESSED FOR DC TO HOME. PT HAS AMBULATED TO THE BATHROOM AND VOIDED QS. AWAITING HER RIDE HOME.
--- NOTE | 2016-10-06 16:20 | NUR ---
DENIES ANY NEEDS AT THIS TIME. NO C/O OF CHEST PAIN. RIGHT GROIN CDI. AT BEDSIDE, CALL LIGHT WITHIN REACH.
--- NOTE | 2016-10-06 16:50 | NUR ---
QUIETLY RESTING IN BED. VSS. RIGHT GROIN CDI. NO HEMATOMA OR BLEEDING NOTED.
--- NOTE | 2016-10-06 17:50 | NUR ---
DINNER TRAY SERVED. NO C/O NAUSEA. WILL CONTINUE TO MONITOR.
--- NOTE | 2016-10-06 18:25 | NUR ---
HOB ELEVATED 30 DEGREES. LEFT FA PIV D/C'D WITH CATHETER INTACT. BAND AID PLACED TO SITE. RIGHT GROIN DRESSING CDI. UP TO GET DRESSED.
--- NOTE | 2016-10-06 18:36 | NUR ---
UP TO RESTROOM TO VOID.
--- NOTE | 2016-10-06 18:45 | NUR ---
DISCHARGE INSTRUCTIONS GIVEN, VERBALIZED UNDERSTANDING.
--- NOTE | 2016-10-06 18:53 | NUR ---
TAKEN OUT VIA WHEELCHAIR BY CATH COMMUNITY ADVOCATE. LEFT FACILITY WITH FAMILY MEMBER AND ALL PERSONAL BELONGINGS.
--- NOTE | 2016-10-15 14:54 | OP ---
PATIENT NAME: LORRI GRACE MEDICAL RECORD: [id number] :40 LOCATION:D.CAT ADMISSION DATE: SURGEON: EFREM STATON M.D. DATE OF OPERATION: 10/06/2016 Catheterization Report REFERRING PHYSICIAN: Alfred Shipley DO PROCEDURES PERFORMED: PTCA and stent placement of the ramus. INDICATION: A 76-year-old, who presents with recurrent angina. Recently, she underwent PTCA of the right coronary artery. She returns today for completion of staged procedure. EQUIPMENT USED: A 6-Uruguayan JL 3.5 guide, BMW guidewire, 2.0 x 20 mm Hampton balloon, 2.25 x 26 mm Integrity stent. DESCRIPTION OF INTERVENTION: A 6-Uruguayan sheath was inserted in retrograde fashion in the right common femoral artery. Next, 100 units per kilogram of heparin was infused. A 6-Uruguayan JL 3.5 guide was advanced and engaged in the left main coronary artery. Next, a BMW guidewire was placed in the distal aspect of the vessel. Injections revealed a long 90% stenosis involving the proximal ramus. It was predilated with a 2.0 x 20 mm Hampton balloon at 12 atmospheres. Next, a 2.25 x 26 mm Integrity stent was placed across the stenosis and deployed at 10 atmospheres. Injection reveals stent to be widely patent with 0% residual stenosis. There is no compromise of the circumflex or LAD. At this point, the wire and guide were removed. IMPRESSION: Successful percutaneous transluminal coronary angioplasty and stenting to the ramus with 0% residual stenosis. TRANSINT:[id number] Voice Confirmation ID: [id number] DOCUMENT ID: [id number] EFREM STATON M.D. at 1454 CC: [id number] DICTATION DATE: 10/06/16 1433 AERIAL LINEMAN: 10/06/16 2342 DEP CLI 10/06/[address] [id number]
== END 2016-10-06 18:53 | disposition home or self-care (01) ==
LOC: D.CATH 10:22
PROVIDERS: Internal Medicine Cardiovascular Disease
DX: I25.119 Atherosclerotic heart disease of native coronary artery with unspecified angina pectoris (principal); Z95.5 Presence of coronary angioplasty implant and graft